=== PATIENT | male | born 1980 | race African-American/Black ===

== ENCOUNTER 2018-01-27 21:25 | Emergency (ER) | payer SELFPAY ==
--- NOTE | 2018-01-27 21:58 | UC ---
Ear Complaint HPI - HPI Summary HPI Summary: He had uri and allergy symptoms a few weeks ago and then started to have ear pain. He had an exam and there was infection inthe left ear. He is on day 8 of amoxacillin 875 bid. He feels better but his ear is still bothering him and there is pressure. No fever or pain. All other uri symptoms have resolved. - History of Current Complaint Chief Complaint: UCEar Stated Complaint: LEFT EAR PAIN Time Seen by Provider: 01/27/18 21:33 Hx Obtained From: Patient Onset/Duration: Gradual Onset, Lasting Days Severity Initially: Moderate Severity Currently: Mild Pain Intensity: 5 Aggravating Factors: Nothing Alleviating Factors: Nothing Associated Signs/Symptoms: Positive: URI Symptoms Related History: Seasonal Allergies - He was on [place] and the pollen was out. - Allergies/Home Medications Allergies/Adverse Reactions: Allergies Allergy/AdvReac Type Severity Reaction Status Date / Time No Known Allergies Allergy Verified 01/27/18 21:46 Home Medications: Home Medications Amoxicillin PO (*) [Amoxicillin 875 MG (*)] 875 mg PO BID 01/27/18 [History Confirmed 01/27/18] PMH/Surg Hx/FS Hx/Imm Hx Previously Healthy: Yes - Surgical History Surgical History: Yes Surgery Procedure, Year, and Place: hernia surgery 2015 - Family History Known Family History: Positive: Other - No FH of ear related illness. - Social History Occupation: Employed Full-time Alcohol Use: Weekly Substance Use Type: None Smoking Status (MU): Never Smoked Tobacco Review of Systems ENT: Ear Ache All Other Systems Reviewed And Are Negative: Yes Physical Exam Triage Information Reviewed: Yes Appearance: Well-Appearing, No Pain Distress, Well-Nourished Vital Signs: Initial Vital Signs Temp 98.9 F 01/27/18 21:41 Pulse 71 01/27/18 21:41 Resp 18 01/27/18 21:41 BP 156/93 01/27/18 21:41 Pulse Ox 95 01/27/18 21:41 Vital Signs Reviewed: Yes Eyes: Positive: Conjunctiva Clear ENT: Positive: Normal ENT inspection, TM bulging - Left TM bulging and there is clear effusion.. Negative: TM dull, TM red Neck: Positive: Supple, Nontender, No Lymphadenopathy Respiratory: Positive: Lungs clear, Normal breath sounds, No respiratory distress, No accessory muscle use. Negative: Respiratory distress, Decreased breath sounds, Accessory muscle use, Crackles, Rhonchi, Stridor, Wheezing Cardiovascular: Positive: No Murmur, Pulses Normal, Brisk Capillary Refill Abdomen Description: Positive: Nontender, No Organomegaly. Negative: Distended , Guarding Musculoskeletal: Positive: ROM Intact, No Edema Neurological: Positive: Alert, Muscle Tone Normal. Negative: Fatigued Psychological: Positive: Age Appropriate Behavior Skin: Negative: rashes Ear Complaint Course/Dx - Course Course Of Treatment: Focus on decongestants and add flonase bid for 3-4 weeks. - Differential Dx/Diagnosis Provider Diagnoses: ear pressure. Discharge - Sign-Out/Discharge Documenting (check all that apply): Discharge - Discharge Plan Condition: Good Disposition: HOME Patient Education Materials: Earache (ED) Referrals: No Primary Care Phys,NOPCP [Primary Care Provider] - Additional Instructions: Finish the antibiotics. Continue pseudophed. Add flonase twice a day for a few weeks. - Billing Disposition and Condition Condition: GOOD Disposition: HOME
== END 2018-01-27 21:59 | disposition home or self-care (01) ==
LOC: UCCORT 21:25
DX: H93.90 Unspecified disorder of ear, unspecified ear (principal)
CPT/HCPCS: 99201; G0463